=== PATIENT | male | born 1960 | race Caucasian/White ===

== ENCOUNTER 2023-09-13 14:37 | Inpatient (IN) | payer OTHER ==
[~2023-09-13] VITALS: Ht 165.1 cm; Wt 77.1 kg
[2023-09-13] MEDS ORDERED: ZOLPIDEM TARTRATE 10 MG TABLET PO PRN (15:00)
[2023-09-13] MEDS ORDERED: MAGNESIUM HYDROXIDE 30 ML UDC PO PRN (15:00)
[2023-09-13] MEDS ORDERED: ACETAMINOPHEN ES 500 MG TABLET PO PRN (15:00)
[2023-09-13] MEDS ORDERED: IBUPROFEN 200 MG TABLET PO PRN (15:00)
[2023-09-13] MEDS ORDERED: MAG HYDROX/AL HYDROX/SIMETH 30 ML UDC PO PRN (15:00)
[2023-09-13] MEDS ORDERED: LORAZEPAM 1 MG TABLET FOR AGITATION PO PRN (15:00)
[2023-09-13 16:00] VITALS: BP 119/91; TEMP 97.6; O2SAT 98
[2023-09-13 20:00] VITALS: BP 123/91; TEMP 97.9; O2SAT 100
[2023-09-13] MEDS: RISPERIDONE 4 MG PO SCH (22:02)
[2023-09-14 08:00] VITALS: BP 116/86; TEMP 98.2; O2SAT 97
[2023-09-14 16:00] VITALS: BP 105/76; TEMP 98.2; O2SAT 96
[2023-09-14 20:00] VITALS: BP 110/83; TEMP 98.6; O2SAT 97
[2023-09-14 20:11] VITALS: BP 110/83; TEMP 98.6; O2SAT 97
[2023-09-16 07:00] VITALS: BP 111/83; TEMP 98.4; O2SAT 96
[2023-09-16 21:35] VITALS: BP 113/82; TEMP 98.4; O2SAT 96
[2023-09-17 07:00] VITALS: BP 111/75; TEMP 97.9; O2SAT 96
[2023-09-17 16:00] VITALS: BP 118/88; TEMP 98.6; O2SAT 95
[2023-09-17 18:31] VITALS: BP 118/88; TEMP 98.6; O2SAT 95
[2023-09-17 20:00] VITALS: BP 119/82; TEMP 98.2; O2SAT 98
[2023-09-18 07:00] VITALS: BP 118/89; TEMP 97.7; O2SAT 95
[2023-09-18 16:00] VITALS: BP 109/77; TEMP 97.7; O2SAT 98
[2023-09-18 20:00] VITALS: BP 115/85; TEMP 97.8; O2SAT 98
[2023-09-19 07:00] VITALS: BP 107/78; TEMP 96.6; O2SAT 97
[2023-09-19 11:30] VITALS: BP 133/72; TEMP 98.8; O2SAT 100
[2023-09-19 16:00] VITALS: BP 131/84; TEMP 98; O2SAT 96
[2023-09-20 03:54] VITALS: BP 117/89; TEMP 99.1; O2SAT 100
[2023-09-20 08:00] VITALS: BP 133/81; TEMP 98.4; O2SAT 94
[2023-09-20 16:00] VITALS: BP 113/82; TEMP 98.8; O2SAT 99
[2023-09-20 20:00] VITALS: BP 113/91; TEMP 98.4; O2SAT 99
[2023-09-21 07:00] VITALS: BP 109/86; TEMP 97.8; O2SAT 95
[2023-09-21 16:00] VITALS: BP 127/86; TEMP 98.1; O2SAT 98
[2023-09-21 20:29] VITALS: BP 102/79; TEMP 98.1
[2023-09-22 05:00] VITALS: BP 119/89; TEMP 97.9; O2SAT 99
[2023-09-22 16:00] VITALS: BP 119/82; TEMP 98.4; O2SAT 98
[2023-09-22 20:00] VITALS: BP 124/84; TEMP 97.8; O2SAT 100
[2023-09-23 08:13] VITALS: BP 117/83; TEMP 98.1; O2SAT 98
[2023-09-23 20:00] VITALS: BP 120/84; TEMP 98.4; O2SAT 98
[2023-09-23 22:00] VITALS: BP 120/84; TEMP 98.4; O2SAT 98
[2023-09-24 08:17] VITALS: BP 110/82; TEMP 98.2; O2SAT 100
[2023-09-24 20:00] VITALS: BP 110/85; TEMP 97.7; O2SAT 96
[2023-09-25 08:00] VITALS: BP 110/79; TEMP 98.6; O2SAT 99
[2023-09-25 20:00] VITALS: BP 115/76; TEMP 98.4; O2SAT 96
[2023-09-26 08:38] VITALS: BP 124/87; TEMP 97.9; O2SAT 99
[2023-09-26 20:00] VITALS: BP 125/82; TEMP 98.2; O2SAT 98
[2023-09-27 08:00] VITALS: BP 121/86; TEMP 97.7; O2SAT 100
[2023-09-27] MEDS ORDERED: LORAZEPAM 1 MG TABLET FOR AGITATION PO PRN (13:00)
[2023-09-27 20:00] VITALS: BP 115/81; TEMP 97.9; O2SAT 98
[2023-09-28 07:30] VITALS: BP 117/90; TEMP 98.2; O2SAT 96
[2023-09-28] MEDS: INVEST MED CVL-231-2002 PO SCH (09:59)
[2023-09-28 16:26] VITALS: BP 121/82; TEMP 99.1; O2SAT 99
[2023-09-28 20:00] VITALS: BP 111/75; TEMP 97.7; O2SAT 96
[2023-09-29 07:30] VITALS: BP 108/82; TEMP 98.2; O2SAT 98
[2023-09-29 16:00] VITALS: BP 129/86; TEMP 98.4; O2SAT 100
[2023-09-29 20:00] VITALS: BP 112/80; TEMP 98.1; O2SAT 100
[2023-09-30 07:00] VITALS: BP 126/90; TEMP 98.4; O2SAT 97
[2023-09-30 20:00] VITALS: BP 133/88; TEMP 99; O2SAT 95
[2023-10-01 07:30] VITALS: BP 114/82; TEMP 98.2; O2SAT 98
[2023-10-01 16:00] VITALS: BP 116/82; TEMP 98.9; O2SAT 98
[2023-10-01 20:00] VITALS: BP 117/86; TEMP 97.9; O2SAT 97
[2023-10-02 07:00] VITALS: BP 121/88; TEMP 97.9; O2SAT 100
[2023-10-02 20:00] VITALS: BP 108/80; TEMP 98.1; O2SAT 99
[2023-10-03 07:30] VITALS: BP 111/79; TEMP 98.7; O2SAT 98
[2023-10-03 20:00] VITALS: BP 123/83; TEMP 98.1; O2SAT 100
[2023-10-03] MEDS: ZOLPIDEM TARTRATE 10 MG TABLET PO PRN (20:25)
[2023-10-04 08:00] VITALS: BP 120/81; TEMP 98; O2SAT 99
[2023-10-04] MEDS ORDERED: LORAZEPAM 1 MG TABLET FOR AGITATION PO PRN (13:00)
[2023-10-04] MEDS ORDERED: ZOLPIDEM TARTRATE 10 MG TABLET PO PRN (13:00)
[2023-10-04 20:00] VITALS: BP 122/91; TEMP 98.2; O2SAT 98
[2023-10-05 08:00] VITALS: BP 108/82; TEMP 98.2; O2SAT 99
[2023-10-05 20:00] VITALS: BP 116/76; TEMP 98.6; O2SAT 100
[2023-10-06 20:00] VITALS: BP 115/82; TEMP 98.2; O2SAT 97
[2023-10-07 07:00] VITALS: BP 120/83; TEMP 98.6; O2SAT 99
[2023-10-07] MEDS: INVEST MED CVL-231-2002 PO SCH (10:36)
[2023-10-07 16:07] VITALS: BP 120/88; TEMP 98.4; O2SAT 99
[2023-10-07 20:00] VITALS: BP 122/83; TEMP 97.9; O2SAT 97
[2023-10-08 07:00] VITALS: BP 136/94; TEMP 98.4; O2SAT 99
[2023-10-08 20:00] VITALS: BP 126/86; TEMP 97.9; O2SAT 96
[2023-10-09 08:29] VITALS: BP 116/85; TEMP 98.2; O2SAT 98
[2023-10-09 20:00] VITALS: BP 122/85; TEMP 99; O2SAT 100
[2023-10-10 08:41] VITALS: BP 143/83; TEMP 98.4; O2SAT 99
[2023-10-10 20:00] VITALS: BP 117/80; TEMP 98.1; O2SAT 98
[2023-10-11 08:00] VITALS: BP 118/82; TEMP 98.4; O2SAT 99
[2023-10-11 20:00] VITALS: BP 134/90; TEMP 98.2; O2SAT 100
[2023-10-12 08:00] VITALS: BP 121/84; TEMP 98.6; O2SAT 100
[2023-10-12] MEDS ORDERED: ZOLPIDEM TARTRATE 10 MG TABLET PO PRN (13:00)
[2023-10-12] MEDS ORDERED: LORAZEPAM 1 MG TABLET FOR AGITATION PO PRN (13:00)
[2023-10-12 21:17] VITALS: BP 128/85; TEMP 97.9; O2SAT 99
[2023-10-13 07:30] VITALS: BP 119/81; TEMP 98.4; O2SAT 100
[2023-10-13 16:37] VITALS: BP 126/84; TEMP 98.2; O2SAT 100
[2023-10-13 21:44] VITALS: BP 126/87; TEMP 97.7; O2SAT 96
[2023-10-14 07:30] VITALS: BP 123/79; TEMP 98.2; O2SAT 100
[2023-10-14 16:00] VITALS: BP 112/85; TEMP 98.1; O2SAT 100
[2023-10-14 16:20] VITALS: BP 112/85; TEMP 98.1; O2SAT 100
[2023-10-14 20:00] VITALS: BP 125/99; TEMP 98.8; O2SAT 99
[2023-10-15 07:30] VITALS: BP 115/78; TEMP 98.4; O2SAT 99
[2023-10-15 16:00] VITALS: BP 115/77; TEMP 98.6; O2SAT 98
[2023-10-15 20:00] VITALS: BP 127/83; TEMP 98.2; O2SAT 98
[2023-10-16 08:00] VITALS: BP 115/85; TEMP 98.1; O2SAT 99
[2023-10-16 12:00] VITALS: BP 104/73; TEMP 98.8; O2SAT 98
[2023-10-16 20:00] VITALS: BP 114/86; TEMP 98.6; O2SAT 95
[2023-10-17 07:00] VITALS: BP 119/86; TEMP 98.4; O2SAT 100
[2023-10-17 20:00] VITALS: BP 117/81; TEMP 98.1; O2SAT 100
[2023-10-18 08:19] VITALS: BP 122/83; TEMP 98.4; O2SAT 98
[2023-10-18] MEDS ORDERED: ZOLPIDEM TARTRATE 10 MG TABLET PO PRN (13:00)
[2023-10-18] MEDS ORDERED: LORAZEPAM 1 MG TABLET FOR AGITATION PO PRN (13:00)
[2023-10-18 16:16] VITALS: BP 114/83; TEMP 98; O2SAT 99
[2023-10-18 20:00] VITALS: BP 117/78; TEMP 98.4; O2SAT 97
[2023-10-19 08:00] VITALS: BP 121/86; TEMP 98.1; O2SAT 99
[2023-10-19 16:00] VITALS: BP 115/80; TEMP 97.9; O2SAT 94
[2023-10-20 07:00] VITALS: BP 110/76; TEMP 98.1; O2SAT 99
[2023-10-20 16:00] VITALS: BP 114/89; TEMP 97.9; O2SAT 100
[2023-10-20 20:01] VITALS: BP 122/87; TEMP 98.1; O2SAT 96
[2023-10-21 07:30] VITALS: BP 107/85; TEMP 98.5; O2SAT 99
[2023-10-21 20:00] VITALS: BP 121/89; TEMP 99.3; O2SAT 96
[2023-10-22 07:30] VITALS: BP 111/82; TEMP 97.9; O2SAT 100
[2023-10-22 16:00] VITALS: BP 125/81; TEMP 98.4; O2SAT 100
[2023-10-22 20:00] VITALS: BP 120/80; TEMP 98.2; O2SAT 98
[2023-10-23 08:00] VITALS: BP 109/77; TEMP 98.1; O2SAT 96
[2023-10-23 20:00] VITALS: BP 130/88; TEMP 98.6; O2SAT 94
[2023-10-24 08:00] VITALS: BP 107/76; TEMP 97.7; O2SAT 97
[2023-10-24 20:00] VITALS: BP 118/86; TEMP 98.6; O2SAT 95
[2023-10-25 07:30] VITALS: BP 119/96; TEMP 98.2; O2SAT 99
[2023-10-25] MEDS ORDERED: LORAZEPAM 1 MG TABLET FOR AGITATION PO PRN (13:00)
[2023-10-25] MEDS ORDERED: ZOLPIDEM TARTRATE 10 MG TABLET PO PRN (13:00)
[2023-10-25 20:00] VITALS: BP 125/81; TEMP 97.7; O2SAT 96
[2023-10-25 20:30] VITALS: BP 125/81; TEMP 97.7; O2SAT 96
[2023-10-25] MEDS: ZOLPIDEM TARTRATE 10 MG TABLET PO PRN (21:19)
[2023-10-26 07:30] VITALS: BP 119/82; TEMP 97.7; O2SAT 99
[2023-10-26 16:00] VITALS: BP 113/81; TEMP 98.4; O2SAT 97
[2023-10-26 19:55] VITALS: BP 123/89; TEMP 98.1; O2SAT 99
[2023-10-26 21:04] VITALS: BP 123/89; TEMP 98.1; O2SAT 99
[2023-10-27 07:00] VITALS: BP 121/84; TEMP 97.3; O2SAT 98
[2023-10-27 20:30] VITALS: BP 119/85; TEMP 98.4; O2SAT 95
[2023-10-28 08:00] VITALS: BP 117/83; TEMP 97.7; O2SAT 100
[2023-10-28 16:00] VITALS: BP 120/80; TEMP 98.2; O2SAT 95
[2023-10-28 20:47] VITALS: BP 117/78; TEMP 98.2; O2SAT 98
[2023-10-29 20:00] VITALS: BP 108/71; TEMP 98.2; O2SAT 97
[2023-10-30 07:30] VITALS: BP 117/75; TEMP 98.3; O2SAT 97
[2023-10-30 20:00] VITALS: BP 117/75; TEMP 97.3; O2SAT 97
[2023-10-31 07:00] VITALS: BP 115/84; TEMP 98.4; O2SAT 100
[2023-10-31 20:00] VITALS: BP 114/81; TEMP 98.3; O2SAT 97
[2023-11-01 08:19] VITALS: BP 117/80; TEMP 97.9; O2SAT 99
[2023-11-01] MEDS ORDERED: ZOLPIDEM TARTRATE 10 MG TABLET PO PRN (13:00)
[2023-11-01] MEDS ORDERED: LORAZEPAM 1 MG TABLET FOR AGITATION PO PRN (13:00)
[2023-11-01 16:55] VITALS: BP 133/96; TEMP 98; O2SAT 99
[2023-11-01 20:00] VITALS: BP 119/85; TEMP 98.4; O2SAT 100
[2023-11-02 08:29] VITALS: BP 116/82; TEMP 98.2; O2SAT 97
[2023-11-02 20:00] VITALS: BP 121/84; TEMP 98.4; O2SAT 97
[2023-11-03 08:00] VITALS: BP 126/89; TEMP 97.7; O2SAT 100
[2023-11-03 16:00] VITALS: BP 135/90; TEMP 98.3; O2SAT 100
[2023-11-03 20:00] VITALS: BP 111/73; TEMP 98.3; O2SAT 98
[2023-11-04 07:00] VITALS: BP 124/89; TEMP 97.9; O2SAT 100
[2023-11-04 20:00] VITALS: BP_SYST 108; BP_SYST 109; BP_DIAS 74; BP_DIAS 81; TEMP 98.2; O2SAT 100; O2SAT 96
[2023-11-04 20:21] VITALS: BP 109/74; TEMP 98.2; O2SAT 100
[2023-11-05 07:00] VITALS: BP 106/75; TEMP 98.1; O2SAT 99
[2023-11-05 16:00] VITALS: BP 108/84; TEMP 98.4; O2SAT 98
[2023-11-05 20:17] VITALS: BP 119/85; TEMP 98.1; O2SAT 97
[2023-11-05 20:52] VITALS: BP 119/85; TEMP 98.1; O2SAT 97
[2023-11-06 08:00] VITALS: BP 118/83; TEMP 98.1; O2SAT 98
[2023-11-06 20:00] VITALS: BP 120/74; TEMP 97.9; O2SAT 95
[2023-11-07 07:30] VITALS: BP 125/87; TEMP 98.4; O2SAT 96
[2023-11-07 16:32] VITALS: BP 133/89; TEMP 98.2; O2SAT 99
[2023-11-07 20:00] VITALS: BP 135/92; TEMP 98.2; O2SAT 98
[2023-11-08 08:23] VITALS: BP 115/84; TEMP 98.4; O2SAT 97
[2023-11-08 20:00] VITALS: BP 138/85; TEMP 97.9; O2SAT 98
[2023-11-09 07:30] VITALS: BP 116/88; TEMP 98.1; O2SAT 97
[2023-11-09] MEDS ORDERED: ZOLPIDEM TARTRATE 10 MG TABLET PO PRN (13:00)
[2023-11-09] MEDS ORDERED: LORAZEPAM 1 MG TABLET FOR AGITATION PO PRN (13:00)
[2023-11-09 16:00] VITALS: BP 125/85; TEMP 98.1; O2SAT 99
[2023-11-09 20:00] VITALS: BP 121/80; TEMP 97.5; O2SAT 97
[2023-11-09 20:09] VITALS: BP 121/80; TEMP 97.5; O2SAT 97
[2023-11-10 07:30] VITALS: BP 116/72; TEMP 97.9; O2SAT 97
[2023-11-10 16:00] VITALS: BP 127/76; TEMP 98.3; O2SAT 96
[2023-11-10 20:00] VITALS: BP 118/78; TEMP 98.1; O2SAT 100
[2023-11-11 08:42] VITALS: BP 109/75; TEMP 97.8; O2SAT 97
[2023-11-11 16:57] VITALS: BP 116/84; TEMP 97.9; O2SAT 97
[2023-11-11 20:00] VITALS: BP 142/90; TEMP 99.9; O2SAT 100
[2023-11-11 20:11] VITALS: BP 142/90; TEMP 99.9; O2SAT 100
[2023-11-12 07:30] VITALS: BP 126/79; TEMP 98.1; O2SAT 98
== END 2023-11-12 11:00 | disposition home or self-care (01) | DRG 951 ==
LOC: MED 14:37
PROVIDERS: ADMIT Psychiatry & Neurology Psychiatry; ATTEND Psychiatry & Neurology Psychiatry
DX: Z00.6 Encounter for examination for normal comparison and control in clinical research program (principal); F20.0 Paranoid schizophrenia; Z79.899 Other long term (current) drug therapy; Z82.0 Family history of epilepsy and other diseases of the nervous system; Z73.6 Limitation of activities due to disability
CPT/HCPCS: G0378

== ENCOUNTER 2024-09-08 11:07 | Inpatient (IN) | payer OTHER ==
[~2024-09-08] VITALS: Ht 165.1 cm; Wt 77.1 kg
[2024-09-08] MEDS ORDERED: MAGNESIUM HYDROXIDE 30 ML UDC PO PRN (15:30)
[2024-09-08] MEDS ORDERED: LORAZEPAM 1 MG TABLET FOR AGITATION PO PRN (15:30)
[2024-09-08] MEDS ORDERED: ZOLPIDEM TARTRATE 10 MG TABLET PO PRN (15:30)
[2024-09-08] MEDS ORDERED: IBUPROFEN 200 MG TABLET PO PRN (15:30)
[2024-09-08] MEDS ORDERED: MAG HYDROX/AL HYDROX/SIMETH 30 ML UDC PO PRN (15:30)
[2024-09-08] MEDS ORDERED: BENZ1TAB7 PO (16:03)
[2024-09-08] MEDS ORDERED: TRAZ-182 PO (16:03)
[2024-09-08] MEDS ORDERED: RISP4TAB70 PO (16:03)
[2024-09-08 20:00] VITALS: BP 138/96; TEMP 97.9; O2SAT 99
[2024-09-09 08:00] VITALS: BP 121/80; TEMP 98.1; O2SAT 96
[2024-09-09 16:00] VITALS: BP 146/79; TEMP 98.1; O2SAT 97
[2024-09-09 20:00] VITALS: BP 118/82; TEMP 98.2; O2SAT 99
[2024-09-09 22:39] VITALS: BP 118/82; TEMP 98.2
[2024-09-10 08:00] VITALS: BP 126/81; TEMP 98.1; O2SAT 98
[2024-09-10 16:00] VITALS: BP 121/68; TEMP 97.7; O2SAT 95
[2024-09-10 20:00] VITALS: BP 130/90; TEMP 97.7; O2SAT 99
[2024-09-11 07:00] VITALS: BP 123/83; TEMP 97.5; O2SAT 99
[2024-09-11 08:00] VITALS: BP 123/83; TEMP 97.5; O2SAT 99
[2024-09-11 16:00] VITALS: BP 133/75; TEMP 98.6; O2SAT 97
[2024-09-11 20:00] VITALS: BP 117/81; TEMP 98.1; O2SAT 97
[2024-09-12 08:00] VITALS: BP 128/99; TEMP 97.9; O2SAT 98
[2024-09-12 15:59] VITALS: BP_SYST 129; BP_SYST 150; BP_DIAS 76; BP_DIAS 86; TEMP 97.5; TEMP 98.6; O2SAT 98; O2SAT 99
[2024-09-12 20:00] VITALS: BP 139/94; TEMP 98.4; O2SAT 99
[2024-09-13 08:00] VITALS: BP 121/82; TEMP 98.4; O2SAT 98
[2024-09-13 16:13] VITALS: BP 131/92; TEMP 98.1; O2SAT 97
[2024-09-13 20:00] VITALS: BP 126/99; TEMP 98.6; O2SAT 100
[2024-09-14 07:00] VITALS: BP 117/88; TEMP 98.4; O2SAT 100
[2024-09-14 16:00] VITALS: BP 114/90; TEMP 97.7; O2SAT 100
[2024-09-14 16:48] VITALS: BP 114/90; TEMP 97.7; O2SAT 100
[2024-09-14 20:00] VITALS: BP 127/89; TEMP 98.1; O2SAT 100
[2024-09-15 20:00] VITALS: BP 118/85; TEMP 98.1; O2SAT 98
[2024-09-16 08:00] VITALS: BP 119/80; TEMP 97.9; O2SAT 99
[2024-09-16 16:00] VITALS: BP 119/75; TEMP 98.1; O2SAT 99
[2024-09-16 20:00] VITALS: BP 158/93; TEMP 98.2; O2SAT 97
[2024-09-17 08:00] VITALS: BP 135/84; TEMP 97.9; O2SAT 99
[2024-09-17 16:00] VITALS: BP 136/78; TEMP 97.8
[2024-09-17 20:00] VITALS: BP 127/87; TEMP 98.6; O2SAT 99
[2024-09-18 08:00] VITALS: BP 133/86; TEMP 98.2
[2024-09-18 18:00] VITALS: BP 127/88; TEMP 98.4
[2024-09-18 20:00] VITALS: BP 134/89; TEMP 97.7; O2SAT 98
[2024-09-19 08:43] VITALS: BP 115/83; TEMP 97.9; O2SAT 98
[2024-09-19 17:39] VITALS: BP 126/75; TEMP 98.1; O2SAT 98
[2024-09-19 20:23] VITALS: BP 122/90; TEMP 97.9; O2SAT 100
[2024-09-20 08:00] VITALS: BP 125/78; TEMP 99; O2SAT 97
[2024-09-20 16:00] VITALS: BP 127/89; TEMP 98.2; O2SAT 99
[2024-09-20 20:00] VITALS: BP 122/87; TEMP 98.4; O2SAT 99
[2024-09-21 08:00] VITALS: BP 110/74; TEMP 98.6; O2SAT 98
[2024-09-21 20:26] VITALS: BP 135/90; TEMP 98.3; O2SAT 98
[2024-09-22 08:00] VITALS: BP 117/72; TEMP 97.7; O2SAT 99
[2024-09-22 16:00] VITALS: BP 123/75; TEMP 97.8; O2SAT 99
[2024-09-22 20:58] VITALS: BP 133/86; TEMP 97.9; O2SAT 99
[2024-09-23 20:00] VITALS: BP 138/81; TEMP 98.6; O2SAT 98
[2024-09-24 08:00] VITALS: BP 140/79; TEMP 98.2; O2SAT 98
[2024-09-24 16:00] VITALS: BP 128/90; TEMP 98.1; O2SAT 98
[2024-09-24 20:00] VITALS: BP 137/91; TEMP 98.4; O2SAT 98
[2024-09-25 08:00] VITALS: BP 129/83; TEMP 98.1; O2SAT 98
[2024-09-25] MEDS ORDERED: LORAZEPAM 1 MG TABLET FOR AGITATION PO PRN (13:00)
[2024-09-25] MEDS ORDERED: ZOLPIDEM TARTRATE 10 MG TABLET PO PRN (13:00)
[2024-09-25 20:00] VITALS: BP 128/87; TEMP 98.2; O2SAT 96
[2024-09-25] MEDS: INVEST MED OTSUKA 382-201-00035 PO SCH (20:19)
[2024-09-26 08:00] VITALS: BP 133/89; TEMP 98.2; O2SAT 99
[2024-09-26 16:00] VITALS: BP 134/88; TEMP 97.7; O2SAT 99
[2024-09-26 20:00] VITALS: BP 134/84; TEMP 98.8; O2SAT 99
[2024-09-27 08:00] VITALS: BP 114/90; TEMP 98.1; O2SAT 100
[2024-09-27 16:00] VITALS: BP 123/95; TEMP 98.2; O2SAT 100
[2024-09-27 20:00] VITALS: BP 136/91; TEMP 97.7; O2SAT 100
[2024-09-28 08:00] VITALS: BP 116/96; TEMP 97.7; O2SAT 100
[2024-09-28 16:00] VITALS: BP 128/90; TEMP 98.2; O2SAT 97
[2024-09-28 20:00] VITALS: BP 142/89; TEMP 97.7; O2SAT 97
[2024-09-29 08:00] VITALS: TEMP 98.6; O2SAT 100
[2024-09-30 08:00] VITALS: BP 109/73; TEMP 98.4; O2SAT 100
[2024-09-30 16:00] VITALS: BP 120/83; TEMP 98.2; O2SAT 100
[2024-09-30 20:00] VITALS: BP 129/87; TEMP 97.6; O2SAT 100
[2024-10-01 08:00] VITALS: BP 119/84; TEMP 98.2; O2SAT 100
[2024-10-01 16:00] VITALS: BP 124/86; TEMP 98.1; O2SAT 99
[2024-10-01 20:00] VITALS: BP 139/87; TEMP 98.6; O2SAT 100
[2024-10-02 08:00] VITALS: BP 124/85; TEMP 98.1; O2SAT 99
[2024-10-02 16:00] VITALS: BP 120/88; TEMP 98.1; O2SAT 99
[2024-10-02 20:00] VITALS: BP 132/91; TEMP 97.9; O2SAT 99
[2024-10-03 08:00] VITALS: BP 129/87; TEMP 97.5; O2SAT 100
[2024-10-03] MEDS ORDERED: ZOLPIDEM TARTRATE 10 MG TABLET PO PRN (13:00)
[2024-10-03] MEDS ORDERED: LORAZEPAM 1 MG TABLET FOR AGITATION PO PRN (13:00)
[2024-10-03 20:00] VITALS: BP 120/75; TEMP 98.1; O2SAT 96
[2024-10-04 08:00] VITALS: BP 123/92; TEMP 97.5; O2SAT 100
[2024-10-04 20:48] VITALS: BP 101/74; TEMP 98.9; O2SAT 100
[2024-10-05 08:00] VITALS: BP 129/88; TEMP 98.2; O2SAT 100
[2024-10-05 16:00] VITALS: BP 103/79; TEMP 98.4; O2SAT 100
[2024-10-05 20:00] VITALS: BP 104/70; TEMP 99; O2SAT 96
[2024-10-06 08:00] VITALS: BP 121/79; TEMP 97.9; O2SAT 97
[2024-10-06 16:00] VITALS: BP 108/70; TEMP 98.2; O2SAT 97
[2024-10-06 20:00] VITALS: BP 130/77; TEMP 98.6; O2SAT 97
[2024-10-06] MEDS ORDERED: GUAIFENESIN LA 600 MG TABLET.SA PO ONE (20:38)
[2024-10-06] MEDS: GUAIFENESIN LA 600 MG TABLET.SA PO SCH (20:41)
[2024-10-07 08:00] VITALS: BP 117/82; TEMP 98.2; O2SAT 94
[2024-10-07 16:00] VITALS: BP 113/78; TEMP 99; O2SAT 96
[2024-10-07] MEDS: ACETAMINOPHEN ES 500 MG TABLET PO PRN (19:34)
[2024-10-07 20:00] VITALS: BP 107/73; TEMP 99.9; O2SAT 95
[2024-10-08 08:00] VITALS: BP 108/80; TEMP 98.2; O2SAT 98
[2024-10-08 16:00] VITALS: BP 132/89; TEMP 99.5; O2SAT 99
[2024-10-08 20:00] VITALS: BP 121/81; TEMP 98.6; O2SAT 99
[2024-10-09 08:00] VITALS: BP 122/79; TEMP 97.3; O2SAT 98
[2024-10-09] MEDS ORDERED: LORAZEPAM 1 MG TABLET FOR AGITATION PO PRN (13:00)
[2024-10-09] MEDS ORDERED: ZOLPIDEM TARTRATE 10 MG TABLET PO PRN (13:00)
[2024-10-09 20:00] VITALS: BP 117/88; TEMP 97.9; O2SAT 99
[2024-10-10 08:00] VITALS: BP 117/80; TEMP 98.4; O2SAT 97
[2024-10-10 16:00] VITALS: BP 102/74; TEMP 97.9; O2SAT 98
[2024-10-10 22:24] VITALS: BP 114/79; TEMP 98.2; O2SAT 99
[2024-10-11 08:00] VITALS: BP 128/86; TEMP 98.2; O2SAT 97
[2024-10-11 16:00] VITALS: BP 120/87; TEMP 98.1; O2SAT 99
[2024-10-11 20:00] VITALS: BP 113/82; TEMP 98.1; O2SAT 97
[2024-10-12 08:00] VITALS: BP 118/85; TEMP 98.4; O2SAT 100
[2024-10-12 16:00] VITALS: BP 92/65; TEMP 98.1; O2SAT 97
[2024-10-12 20:00] VITALS: BP 107/65; TEMP 97.5; O2SAT 98
[2024-10-13 16:00] VITALS: BP 94/63; TEMP 98.1; O2SAT 96
[2024-10-13 19:56] VITALS: BP 92/67; TEMP 98.4; O2SAT 96
[2024-10-14 08:00] VITALS: BP 115/82; TEMP 98.2; O2SAT 99
[2024-10-14 16:00] VITALS: BP 98/70; TEMP 97.7; O2SAT 99
[2024-10-14 20:00] VITALS: BP 106/64; TEMP 98.2; O2SAT 100
[2024-10-15 08:00] VITALS: BP 117/81; TEMP 98; O2SAT 99
[2024-10-15 16:00] VITALS: BP 117/74; TEMP 98.6; O2SAT 99
[2024-10-15 20:00] VITALS: BP 130/75; TEMP 97.7; O2SAT 100
[2024-10-16 08:00] VITALS: BP 124/83; TEMP 97.8; O2SAT 100
[2024-10-16 16:00] VITALS: BP 125/65; TEMP 98.2; O2SAT 100
[2024-10-16 20:00] VITALS: BP 95/69; TEMP 97.7; O2SAT 98
[2024-10-17 08:00] VITALS: BP 117/86; TEMP 98.2; O2SAT 100
[2024-10-17] MEDS ORDERED: LORAZEPAM 1 MG TABLET FOR AGITATION PO PRN (13:00)
[2024-10-17] MEDS ORDERED: ZOLPIDEM TARTRATE 10 MG TABLET PO PRN (13:00)
[2024-10-17 16:00] VITALS: BP 111/71; TEMP 97.5; O2SAT 97
[2024-10-17 20:00] VITALS: BP 102/65; TEMP 98.1; O2SAT 98
[2024-10-18 08:00] VITALS: BP 126/81; TEMP 97.5; O2SAT 99
[2024-10-18 20:00] VITALS: BP 112/73; TEMP 98.8; O2SAT 97
[2024-10-19 08:37] VITALS: BP 114/79; TEMP 97.7; O2SAT 99
[2024-10-19 20:00] VITALS: BP 108/75; TEMP 97.7; O2SAT 97
[2024-10-20 16:50] VITALS: BP 105/67; TEMP 99.3; O2SAT 98
[2024-10-21 08:00] VITALS: BP 114/82; TEMP 98.2; O2SAT 98
[2024-10-21 16:00] VITALS: BP 107/80; TEMP 99; O2SAT 100
[2024-10-21 20:32] VITALS: BP 106/71; TEMP 98.2; O2SAT 100
[2024-10-22 08:00] VITALS: BP 115/78; TEMP 98.2; O2SAT 98
[2024-10-22 20:00] VITALS: BP 102/74; TEMP 98.8; O2SAT 97
[2024-10-22] MEDS ORDERED: GUAIFENESIN LA 600 MG TABLET.SA PO PRN (21:00)
[2024-10-23 08:00] VITALS: BP 118/84; TEMP 98.1; O2SAT 100
[2024-10-23] MEDS: IBUPROFEN 600 MG TABLET PO PRN (11:59)
[2024-10-23] MEDS ORDERED: ZOLPIDEM TARTRATE 10 MG TABLET PO PRN (13:00)
[2024-10-23] MEDS ORDERED: LORAZEPAM 1 MG TABLET FOR AGITATION PO PRN (13:00)
[2024-10-23 16:00] VITALS: BP 116/83; TEMP 98.1; O2SAT 99
[2024-10-23 20:00] VITALS: BP 111/78; TEMP 98.6; O2SAT 99
[2024-10-24 08:40] VITALS: BP 123/78; TEMP 98.2; O2SAT 99
[2024-10-24 20:00] VITALS: BP 101/73; TEMP 98.6; O2SAT 98
[2024-10-25 08:00] VITALS: BP 132/95; TEMP 98.4; O2SAT 99
[2024-10-25 16:00] VITALS: BP 104/73; TEMP 98.2; O2SAT 98
[2024-10-25 20:00] VITALS: BP 101/74; TEMP 97.7; O2SAT 99
[2024-10-26 08:00] VITALS: BP 131/85; TEMP 98.4; O2SAT 99
[2024-10-26 16:00] VITALS: BP 96/70; TEMP 98.4; O2SAT 98
[2024-10-26 20:00] VITALS: BP 101/76; TEMP 98.2; O2SAT 99
[2024-10-27 08:00] VITALS: BP 114/77; TEMP 97.7; O2SAT 97
[2024-10-27 16:00] VITALS: BP 100/60; TEMP 98.1; O2SAT 96
[2024-10-27 20:00] VITALS: BP 102/75; TEMP 97.6; O2SAT 98
[2024-10-28 08:00] VITALS: BP 110/77; TEMP 98.1; O2SAT 96
[2024-10-28 20:00] VITALS: BP 108/72; TEMP 98.2; O2SAT 99
[2024-10-29 08:00] VITALS: BP 123/84; TEMP 98.4; O2SAT 100
[2024-10-29 16:00] VITALS: BP 91/71; TEMP 98.6; O2SAT 99
[2024-10-29 20:00] VITALS: BP 123/74; TEMP 98.5; O2SAT 100
[2024-10-30 08:00] VITALS: BP 123/89; TEMP 98.2; O2SAT 96
[2024-10-30] MEDS ORDERED: LORAZEPAM 1 MG TABLET FOR AGITATION PO PRN (13:00)
[2024-10-30] MEDS ORDERED: ZOLPIDEM TARTRATE 10 MG TABLET PO PRN (13:00)
[2024-10-30 18:00] VITALS: BP 94/73; TEMP 98.1; O2SAT 98
[2024-10-30 20:00] VITALS: BP 116/76; TEMP 98.6; O2SAT 95
[2024-10-31 08:00] VITALS: BP 123/81; TEMP 98.2; O2SAT 100
[2024-10-31 20:00] VITALS: BP 103/74; TEMP 98.2; O2SAT 98
[2024-11-01 08:00] VITALS: BP 114/79; TEMP 98.2; O2SAT 100
[2024-11-01 16:00] VITALS: BP 103/73; TEMP 98.4; O2SAT 99
[2024-11-01 20:00] VITALS: BP 105/77; TEMP 98.4; O2SAT 99
[2024-11-02 08:00] VITALS: BP 123/86; TEMP 98.1; O2SAT 99
[2024-11-02 20:00] VITALS: BP 100/70; TEMP 97.9; O2SAT 97
[2024-11-03 20:15] VITALS: BP 104/55; TEMP 98.8; O2SAT 99
[2024-11-04 16:00] VITALS: BP 101/76; TEMP 98.4; O2SAT 100
[2024-11-04 20:00] VITALS: BP 104/82; TEMP 98.4; O2SAT 99
[2024-11-05 08:00] VITALS: BP 114/82; TEMP 97.7; O2SAT 100
[2024-11-05 16:00] VITALS: BP 104/75; TEMP 98.1; O2SAT 98
[2024-11-05 19:54] VITALS: BP 98/72; TEMP 98; O2SAT 98
[2024-11-06 08:00] VITALS: BP 130/82; TEMP 98; O2SAT 100
[2024-11-06 16:00] VITALS: BP 135/81; TEMP 98; O2SAT 99
[2024-11-06 20:00] VITALS: BP 129/71; TEMP 98.4; O2SAT 100
[2024-11-07 08:00] VITALS: BP 133/81; TEMP 98; O2SAT 99
[2024-11-07] MEDS ORDERED: LORAZEPAM 1 MG TABLET FOR AGITATION PO PRN (13:00)
[2024-11-07 20:45] VITALS: BP 98/69; TEMP 99.1; O2SAT 98
[2024-11-07] MEDS: risperiDONE 1 MG TABLET PO SCH (21:40)
[2024-11-08 08:00] VITALS: BP 119/91; TEMP 98.6; O2SAT 99
[2024-11-08 16:00] VITALS: BP 102/78; TEMP 98.6; O2SAT 97
[2024-11-08 20:02] VITALS: BP 101/69; TEMP 98; O2SAT 98
[2024-11-09 08:00] VITALS: BP 134/90; TEMP 98.2; O2SAT 100
[2024-11-09 16:00] VITALS: BP 108/82; TEMP 98.4; O2SAT 99
[2024-11-09 20:00] VITALS: BP 103/64; TEMP 98.2; O2SAT 97
[2024-11-09] MEDS: risperiDONE 1 MG TABLET PO SCH (21:00)
[2024-11-10 07:55] VITALS: BP 135/87; TEMP 98.6; O2SAT 98
[2024-11-10 20:14] VITALS: BP 132/82; TEMP 98; O2SAT 99
[2024-11-10] MEDS ORDERED: risperiDONE 1 MG TABLET ONE ×2 (21:32→21:42)
[2024-11-11 08:08] VITALS: BP 134/90; TEMP 98.4; O2SAT 98
[2024-11-11 16:00] VITALS: BP 106/82; TEMP 98.8; O2SAT 97
[2024-11-11 20:05] VITALS: BP 118/83; TEMP 98.6; O2SAT 99
[2024-11-11] MEDS ORDERED: risperiDONE 1 MG TABLET ONE (21:41)
[2024-11-11] MEDS: risperiDONE 1 MG TABLET PO SCH (22:06)
[2024-11-12 16:00] VITALS: BP 105/78; TEMP 98.8; O2SAT 98
[2024-11-12 20:00] VITALS: BP 124/88; TEMP 98.7; O2SAT 100
[2024-11-12] MEDS ORDERED: risperiDONE 1 MG TABLET ONE (21:29)
[2024-11-13 19:57] VITALS: BP 123/88; TEMP 98; O2SAT 98
[2024-11-14 08:00] VITALS: BP 142/90; TEMP 98.7; O2SAT 98
== END 2024-11-14 11:30 | disposition home or self-care (01) | DRG 951 ==
LOC: MED 14:56 → MEDSG2 09-14 19:03
PROVIDERS: ADMIT Psychiatry & Neurology Psychiatry; ATTEND Psychiatry & Neurology Psychiatry
DX: Z00.6 Encounter for examination for normal comparison and control in clinical research program (principal); F20.0 Paranoid schizophrenia; Z82.0 Family history of epilepsy and other diseases of the nervous system
CPT/HCPCS: G0378

== ENCOUNTER 2025-01-29 12:44 | Inpatient (IN) | payer OTHER ==
[~2025-01-29] VITALS: Ht 162.6 cm; Wt 59.0 kg
[~2025-01-29 12:44] MED LIST: BENZ1TAB7 PO; RISP4TAB70 PO; TRAZ-182 PO
[2025-01-29 17:15] VITALS: BP 120/81; TEMP 97.8; O2SAT 99
[2025-01-29] MEDS ORDERED: ACETAMINOPHEN ES 500 MG TABLET PO PRN (17:30)
[2025-01-29] MEDS ORDERED: ZOLPIDEM TARTRATE 10 MG TABLET PO PRN (17:30)
[2025-01-29] MEDS ORDERED: IBUPROFEN 200 MG TABLET PO PRN (17:30)
[2025-01-29] MEDS ORDERED: MAGNESIUM HYDROXIDE 30 ML UDC PO PRN (17:30)
[2025-01-29] MEDS ORDERED: LORAZEPAM 1 MG TABLET FOR AGITATION PO PRN (17:30)
[2025-01-29] MEDS ORDERED: MAG HYDROX/AL HYDROX/SIMETH 30 ML UDC PO PRN (17:30)
[2025-01-29 18:00] VITALS: BP 120/81; TEMP 97.9; O2SAT 99
[2025-01-29 20:00] VITALS: BP 130/90; TEMP 98.6; O2SAT 99
[2025-01-29] MEDS: RISPERIDONE 2 MG PO SCH (22:01)
[2025-01-30 08:00] VITALS: BP 116/85; TEMP 97.7; O2SAT 99
[2025-01-30 16:00] VITALS: BP 118/80; TEMP 98.2; O2SAT 99
[2025-01-30 20:00] VITALS: BP 98/68; TEMP 97.9; O2SAT 97
[2025-01-31 08:00] VITALS: BP 110/80; TEMP 98.2; O2SAT 97
[2025-01-31 20:00] VITALS: BP 110/79; TEMP 97.3; O2SAT 95
[2025-02-01 08:00] VITALS: BP 124/92; TEMP 97.5; O2SAT 97
[2025-02-01 20:00] VITALS: BP 96/80; TEMP 97.9; O2SAT 94
[2025-02-01] MEDS: RISPERIDONE 1 MG PO SCH (21:37)
[2025-02-02 16:00] VITALS: BP 125/87; TEMP 98.2; O2SAT 98
[2025-02-02 20:00] VITALS: BP 112/75; TEMP 98.6; O2SAT 19
[2025-02-03 08:00] VITALS: BP 125/83; TEMP 97.9; O2SAT 99
[2025-02-03 16:00] VITALS: BP 118/80; TEMP 97.9; O2SAT 96
[2025-02-03 20:00] VITALS: BP 105/74; TEMP 97.5; O2SAT 98
[2025-02-04 07:30] VITALS: BP 125/93; TEMP 98.2; O2SAT 100
[2025-02-04 20:00] VITALS: BP 100/73; TEMP 97.7; O2SAT 95
[2025-02-05 08:00] VITALS: BP 121/85; TEMP 97.5; O2SAT 98
[2025-02-05 20:00] VITALS: BP 105/74; TEMP 97.9; O2SAT 99
[2025-02-06 08:00] VITALS: BP 117/87; TEMP 97.9; O2SAT 99
[2025-02-06 20:00] VITALS: BP 95/64; TEMP 97.7; O2SAT 97
[2025-02-07 08:00] VITALS: BP 111/82; TEMP 97.3; O2SAT 98
[2025-02-07] MEDS ORDERED: LORAZEPAM 1 MG TABLET FOR AGITATION PO PRN (13:00)
[2025-02-07] MEDS ORDERED: ZOLPIDEM TARTRATE 10 MG TABLET PO PRN (13:00)
[2025-02-07 16:00] VITALS: BP 123/84; TEMP 97.9; O2SAT 98
[2025-02-07 20:00] VITALS: BP 115/72; TEMP 97.9; O2SAT 97
[2025-02-08 08:00] VITALS: BP 125/92; TEMP 98.4; O2SAT 100
[2025-02-09 08:00] VITALS: BP 122/73; TEMP 98.2; O2SAT 99
[2025-02-09] MEDS: [UNRECOGNIZED DRUG - OTHER] PO SCH (10:19)
[2025-02-09 20:00] VITALS: BP 104/74; TEMP 98.1; O2SAT 98
[2025-02-10 08:00] VITALS: BP 126/90; TEMP 97.7; O2SAT 100
[2025-02-10 10:00] VITALS: BP 126/90; TEMP 97.7; O2SAT 100
[2025-02-10 20:00] VITALS: BP 106/79; TEMP 97.3; O2SAT 97
[2025-02-11 09:45] VITALS: BP 118/75; TEMP 97.3; O2SAT 100
[2025-02-12 08:14] VITALS: BP 114/84; TEMP 98.2; O2SAT 97
[2025-02-12 16:09] VITALS: BP 102/79; TEMP 98; O2SAT 99
[2025-02-13 08:00] VITALS: BP 127/85; TEMP 98.4; O2SAT 99
[2025-02-13 16:00] VITALS: BP 115/71; TEMP 98.2; O2SAT 96
[2025-02-13 20:00] VITALS: BP 101/73; TEMP 97.7; O2SAT 97
[2025-02-14 08:00] VITALS: BP 139/96; TEMP 98.1; O2SAT 99
[2025-02-14 20:00] VITALS: BP 110/63; TEMP 97.9; O2SAT 98
[2025-02-15 07:30] VITALS: BP 125/96; TEMP 98.2; O2SAT 100
[2025-02-15] MEDS ORDERED: LORAZEPAM 1 MG TABLET FOR AGITATION PO PRN (13:00)
[2025-02-15] MEDS ORDERED: ZOLPIDEM TARTRATE 10 MG TABLET PO PRN (13:00)
[2025-02-15 20:00] VITALS: BP 108/77; TEMP 98.1; O2SAT 99
[2025-02-16 07:30] VITALS: BP 116/85; TEMP 97.7; O2SAT 100
[2025-02-16 08:00] VITALS: BP 114/88; TEMP 98.4; O2SAT 99
[2025-02-16 20:00] VITALS: BP 94/67; TEMP 97.5; O2SAT 95
[2025-02-17 08:00] VITALS: BP 110/86; TEMP 98.2; O2SAT 100
[2025-02-17 20:00] VITALS: BP 99/72; TEMP 97.5; O2SAT 97
[2025-02-18 08:58] VITALS: BP 117/86; TEMP 98.6; O2SAT 100
[2025-02-18 20:00] VITALS: BP 97/69; TEMP 98.4; O2SAT 98
[2025-02-19 08:24] VITALS: BP 113/83; TEMP 98.2; O2SAT 99
[2025-02-19 09:22] VITALS: TEMP 98.2; O2SAT 99
[2025-02-19 20:00] VITALS: BP 107/75; TEMP 97.5; O2SAT 94
[2025-02-20 08:00] VITALS: BP 110/84; TEMP 98.2; O2SAT 98
[2025-02-20 11:30] VITALS: BP 103/54; TEMP 98.2; O2SAT 100
[2025-02-20 20:00] VITALS: BP 115/77; TEMP 98.4; O2SAT 100
[2025-02-21 07:30] VITALS: BP 128/83; TEMP 96.6; O2SAT 98
[2025-02-21 20:00] VITALS: BP 104/77; TEMP 97.7; O2SAT 98
[2025-02-22 07:30] VITALS: BP 118/89; TEMP 97.7; O2SAT 98
[2025-02-22] MEDS ORDERED: ZOLPIDEM TARTRATE 10 MG TABLET PO PRN (13:00)
[2025-02-22] MEDS ORDERED: LORAZEPAM 1 MG TABLET FOR AGITATION PO PRN (13:00)
[2025-02-22 20:00] VITALS: BP 103/72; TEMP 97.9; O2SAT 97
[2025-02-23 08:00] VITALS: BP 112/84; TEMP 98.2; O2SAT 100
[2025-02-23 12:00] VITALS: BP 107/79; TEMP 98.4; O2SAT 99
[2025-02-23 16:00] VITALS: BP 107/79; TEMP 98.4; O2SAT 99
[2025-02-23 20:00] VITALS: BP 102/61; TEMP 98.2; O2SAT 100
[2025-02-24 08:00] VITALS: BP 114/84; TEMP 98.1; O2SAT 100
[2025-02-24 20:00] VITALS: BP_SYST 103; BP_DIAS 77; BP_DIAS 79; TEMP 97.9; O2SAT 100; O2SAT 96
[2025-02-25 07:00] VITALS: BP 122/96; TEMP 97.5; O2SAT 99
[2025-02-25 16:00] VITALS: BP 91/69; TEMP 98.1; O2SAT 99
[2025-02-26 07:30] VITALS: BP 119/88; TEMP 98.2; O2SAT 99
[2025-02-26 20:00] VITALS: BP 102/66; TEMP 98.1; O2SAT 97
[2025-02-27 07:30] VITALS: BP 120/85; TEMP 98.1; O2SAT 100
[2025-02-27 20:17] VITALS: BP 95/68; TEMP 98.1; O2SAT 98
[2025-02-28 09:14] VITALS: BP 110/83; TEMP 97.9; O2SAT 99
[2025-02-28 20:00] VITALS: BP 102/77; TEMP 98.2; O2SAT 98
[2025-03-01 08:00] VITALS: BP 114/79; TEMP 97.7; O2SAT 100
[2025-03-01] MEDS ORDERED: ZOLPIDEM TARTRATE 10 MG TABLET PO PRN (13:00)
[2025-03-01] MEDS ORDERED: LORAZEPAM 1 MG TABLET FOR AGITATION PO PRN (13:00)
[2025-03-01 20:00] VITALS: BP 96/73; TEMP 98.1; O2SAT 97
[2025-03-02 08:00] VITALS: BP 111/84; TEMP 97.9; O2SAT 97
[2025-03-02 20:00] VITALS: BP 98/71; TEMP 98; O2SAT 98
[2025-03-03 08:00] VITALS: BP 113/83; TEMP 98.1; O2SAT 100
[2025-03-03 08:23] VITALS: BP 113/83; TEMP 98.1; O2SAT 98
[2025-03-03 20:00] VITALS: BP 93/67; TEMP 98.2; O2SAT 97
[2025-03-04 08:00] VITALS: BP 119/96; TEMP 97.7; O2SAT 100
[2025-03-04 08:45] VITALS: BP 111/84; TEMP 97.9; O2SAT 97
[2025-03-04 20:00] VITALS: BP 108/81; TEMP 97.9; O2SAT 95
[2025-03-05 07:00] VITALS: BP 139/92; TEMP 98.1; O2SAT 100
[2025-03-05 20:00] VITALS: BP 97/78; TEMP 98.6; O2SAT 98
[2025-03-06 08:00] VITALS: BP 128/87; TEMP 98.2; O2SAT 100
[2025-03-06 20:00] VITALS: BP 100/71; TEMP 98.1; O2SAT 97
[2025-03-07 08:00] VITALS: BP 126/92; TEMP 98.4; O2SAT 98
[2025-03-07 20:00] VITALS: BP 113/82; TEMP 97.9; O2SAT 97
[2025-03-08 07:30] VITALS: BP 113/83; TEMP 97.3; O2SAT 99
[2025-03-08] MEDS ORDERED: ZOLPIDEM TARTRATE 10 MG TABLET PO PRN (13:00)
[2025-03-08] MEDS ORDERED: LORAZEPAM 1 MG TABLET FOR AGITATION PO PRN (13:00)
[2025-03-08 20:00] VITALS: BP 102/72; TEMP 97.5; O2SAT 97
[2025-03-09 08:32] VITALS: BP 110/90; TEMP 97.9; O2SAT 100
[2025-03-09 20:00] VITALS: BP 101/71; TEMP 97.4; O2SAT 98
[2025-03-10 08:00] VITALS: BP 120/86; TEMP 98.2; O2SAT 98
[2025-03-10 20:00] VITALS: BP 107/70; TEMP 98.2; O2SAT 96
[2025-03-11 08:00] VITALS: BP 107/81; TEMP 98.1; O2SAT 100
[2025-03-11 20:52] VITALS: BP 102/74; TEMP 97.9; O2SAT 98
[2025-03-12 08:00] VITALS: BP 122/82; TEMP 98.1; O2SAT 98
[2025-03-12 20:00] VITALS: BP 110/81; TEMP 98; O2SAT 99
[2025-03-13 08:00] VITALS: BP 107/75; TEMP 98.2; O2SAT 98
[2025-03-13 16:00] VITALS: BP 108/78; TEMP 98; O2SAT 98
[2025-03-13 20:47] VITALS: BP 100/78; TEMP 98.2; O2SAT 98
[2025-03-14 09:00] VITALS: BP 135/91; TEMP 97.9; O2SAT 98
[2025-03-14 20:00] VITALS: BP 103/75; TEMP 97.9; O2SAT 97
[2025-03-15 08:12] VITALS: BP 126/83; TEMP 98; O2SAT 100
[2025-03-15] MEDS: HOME MED MISCELLANEOUS (RISPERIDONE 1 MG) PO SCH (21:51)
[2025-03-15 22:00] VITALS: BP 104/73; TEMP 98.1; O2SAT 96
[2025-03-16 08:00] VITALS: BP 131/83; TEMP 97.8; O2SAT 100
[2025-03-16 21:00] VITALS: BP 106/74; TEMP 98.4; O2SAT 100
[2025-03-16] MEDS: HOME MED MISCELLANEOUS (RISPERIDONE 2 MG) PO SCH (21:58)
[2025-03-17 08:00] VITALS: BP 126/84; TEMP 97.9; O2SAT 97
[2025-03-17 20:14] VITALS: BP 134/81; TEMP 98.1; O2SAT 99
[2025-03-18 08:00] VITALS: BP 113/79; TEMP 97.9; O2SAT 98
[2025-03-18] MEDS: HOME MED MISCELLANEOUS (RISPERIDONE 2 MG) PO SCH (09:00)
[2025-03-18 16:35] VITALS: BP 107/73; TEMP 97.7; O2SAT 98
[2025-03-18 20:02] VITALS: BP 110/69; TEMP 98.3; O2SAT 98
[2025-03-19 08:00] VITALS: BP 114/79; TEMP 98; O2SAT 100
[2025-03-19 16:05] VITALS: BP 102/78; TEMP 98; O2SAT 100
[2025-03-19 21:00] VITALS: BP 111/79; TEMP 98.1; O2SAT 97
[2025-03-20 09:00] VITALS: BP 119/89; TEMP 97.9; O2SAT 98
[2025-03-20 20:00] VITALS: BP 124/90; TEMP 98.6; O2SAT 97
[2025-03-21 08:00] VITALS: BP 119/83; TEMP 97.9; O2SAT 97
== END 2025-03-21 17:00 | disposition home or self-care (01) | DRG 951 ==
LOC: MED 16:25 → MEDSG2 03-12 13:19
PROVIDERS: ADMIT Psychiatry & Neurology Psychiatry; ATTEND Psychiatry & Neurology Psychiatry
DX: Z00.6 Encounter for examination for normal comparison and control in clinical research program (principal); F20.0 Paranoid schizophrenia; Z82.0 Family history of epilepsy and other diseases of the nervous system; Z98.890 Other specified postprocedural states; Z87.828 Personal history of other (healed) physical injury and trauma
CPT/HCPCS: G0378